=== PATIENT | male | born 1950 | race Two or more races ===

== ENCOUNTER 2020-11-10 03:39 | Emergency (ER) | payer BC ==
[~2020-11-10] VITALS: Ht 177.8 cm; Wt 88.9 kg
[2020-11-10] MEDS ORDERED: IV NORMAL SALINE 500 ML IV ONE (04:00)
[2020-11-10] MEDS ORDERED: ONDANSETRON 4 MG/2 ML VIAL IV ONE ×3 (04:00→08:15)
[2020-11-10] MEDS ORDERED: MORPHINE SULFATE 2 MG/1 ML DISP.SYRIN IV ONE (04:00)
--- NOTE | 2020-11-10 04:00 | NUR ---
Pt out of ER for CT.
[2020-11-10] MEDS ORDERED: MORPHINE SULFATE 2 MG/1 ML DISP.SYRIN ONE (04:05)
[2020-11-10] MEDS ORDERED: ONDANSETRON 4 MG/2 ML VIAL ONE ×3 (04:05→08:20)
[2020-11-10 04:29] LABS: HEMATOCRIT 38.4 % (36.7-47.1); MEAN CORPUSCULAR HEMOGLOBIN 29.8 uug (23.8-33.4); MEAN CORPUSCULAR VOLUME 86.3 fL (73.0-96.2); PLATELET COUNT (AUTO) 325 K/uL (152-348)
[2020-11-10 04:40] LABS: CREATININE 0.8 mg/dL (0.6-1.3); POTASSIUM 3.7 mmol/L (3.5-5.1)
[2020-11-10 04:45] LABS: BILIRUBIN,DIRECT 0.2 mg/dL (0.0-0.2); BILIRUBIN,TOTAL 0.6 mg/dL (0.2-1.0); TOTAL PROTEIN, SERUM 8.2 g/dL (6.4-8.2)
--- NOTE | 2020-11-10 05:32 | NUR ---
Dr. Bruno speaking with Dr. Graves of [facility].
[2020-11-10 06:40] LABS: *BILIRUBIN,URIN NEGATIVE (NEGATIVE); *BLOOD, URINE NEGATIVE (NEGATIVE); *CLARITY,URINE CLEAR (CLEAR); *COLOR,URINE YELLOW (YELLOW); *KETONES,URINE NEGATIVE (NEGATIVE); *UROBILINOGEN,URINE 0.2 E.U./dl (NORMAL); LEUKOCYTE ESTERASE ,URINE NEGATIVE (NEGATIVE); NITRITE, URINE NEGATIVE (NEGATIVE); PH,URINE 8.5 (5.0-8.0); UGLUCOSE 1+ (NEGATIVE)
--- NOTE | 2020-11-10 07:30 | NUR ---
Received report from [facility]. Per report pt is a pending transfer per HMO request, HMO to call back with transfer information. Pt is resting with eyes closed with NAD noted at this time.
[2020-11-10] MEDS ORDERED: PANTOPRAZOLE SODIUM 40 MG VIAL IV ONE (08:15)
[2020-11-10] MEDS ORDERED: MORPHINE SULFATE 4 MG/1 ML DISP.SYRIN IV ONE (08:15)
[2020-11-10] MEDS ORDERED: PANTOPRAZOLE SODIUM 40 MG VIAL ONE (08:20)
[2020-11-10] MEDS ORDERED: MORPHINE SULFATE 4 MG/1 ML DISP.SYRIN ONE (08:20)
--- NOTE | 2020-11-10 08:20 | NUR ---
Pt c/o nausea and pain (10/11), pt was medicated as ordered by .
[2020-11-10] MEDS ORDERED: BISACODYL 10 MG SUPP.RECT RC ONE ×2 (09:30→09:47)
[2020-11-10] MEDS ORDERED: MAGNESIUM CITRATE 296 ML BOTTLE PO ONE (09:30)
[2020-11-10] MEDS ORDERED: MAGNESIUM CITRATE 296 ML BOTTLE ONE (09:47)
--- NOTE | 2020-11-10 11:00 | NUR ---
[facility] called and spoke with ER admitting regarding transfer.
--- NOTE | 2020-11-10 11:15 | NUR ---
Pt's COVID antigen results faxed to [facility] as requested.
--- NOTE | 2020-11-10 11:30 | NUR ---
Spoke with Paulina (case supervisor from [facility]) regarding transfer. She stated they have accepted the patient for transfer and will call back when a bed is available.
--- NOTE | 2020-11-10 11:49 | NUR ---
Pt stated he feels better and does not want to be admitted or transfered to another facility and wants to go home. Family at bedside. notified and spoke with the pt and family.
[2020-11-10] MEDS ORDERED: ONDA4TAB11 PO (11:51)
[2020-11-10] MEDS ORDERED: BISA10SU61 RC (11:51)
--- NOTE | 2020-11-10 11:52 | NUR ---
IV removed. Catheter intact and site benign. Pressure and 4x4 gauze applied to site. No bleeding noted.
--- NOTE | 2020-11-10 12:27 | NUR ---
Patient discharged to home in stable condition with family. Written and verbal after care instructions given. Patient and family verbalized understanding of instructions. Stressed follow up or return to ER for worsening s/s.
== END 2020-11-10 12:27 | disposition home or self-care (01) ==
LOC: ER 03:42
DX: R10.9 Unspecified abdominal pain (principal); K59.00 Constipation, unspecified; R11.2 Nausea with vomiting, unspecified; R94.31 Abnormal electrocardiogram [ECG] [EKG]; E78.5 Hyperlipidemia, unspecified; I10 Essential (primary) hypertension; E11.65 Type 2 diabetes mellitus with hyperglycemia; Z20.822 Contact with and (suspected) exposure to COVID-19
CPT/HCPCS: 36415; 74176; 80048; 80076; 81003; 83605; 83690; 84484; 85025; 85730; 87426; 93005; 96361; 96374; 96375; 96376; 99285; C9113; J2270 ×2; J2405 ×3; 70030-TC; A4663; J7030